=== PATIENT | male | born 1980 | race Caucasian/White ===

== ENCOUNTER → 2024-02-20 10:00 | Outpatient (REF) | payer BC, SELFPAY | LOC: CLAB 10:00 | PROVIDERS: ATTENDING PHYSICIAN Surgery | DX: Z30.2 Encounter for sterilization (principal) | CPT/HCPCS: 88302 ==

== ENCOUNTER 2024-04-06 18:53 | Emergency (ER) | payer BC, SELFPAY ==
[2024-04-06 18:58] VITALS: BP 130/68
[2024-04-06 19:10] LABS: % Basophils 0.3 % (0-2); % Eosinophils 1.3 % (0-6); % Immature Granulocytes 0.2 % (0-0.5); % Lymphocytes 36.6 % (20.5-51.1); % Monocytes 4.8 % (1.7-9.3); % Neutrophils 56.8 % (42.2-75.2); Absolute Eosinophils 0.1 10^3/uL (0-0.7); Absolute Lymphocytes 3.6 10^3/uL (1.2-3.4); Absolute Monocytes 0.5 10^3/uL (0.1-0.6); Absolute Neutrophils 5.6 10^3/uL (1.4-6.5); Hematocrit 41.7 % (39.0-52.0); Hemoglobin 14.7 g/dL (13.0-18.0); Mean Corp Hgb Conc. 35.3 g/dL (33.0-37.0); Mean Corpuscular Hgb 31.8 pg (27.0-31.0); Mean Corpuscular Volume 90.3 fL (80.0-94.0); Mean Platelet Volume 9.2 fL (7.4-10.4); Nucleated Red Blood Cells % 0 % (-); Platelet Count 241 10^3/uL (130-400); Red Blood Cell Count 4.62 10^6/uL (4.70-6.10); Red Cell Dist. Width 12.6 % (11.5-14.5); White Blood Cell Count 9.8 10^3/uL (4.8-10.8)
[2024-04-06 19:23] LABS: ALT (SGPT) 24 U/L (0-50); AST (SGOT) 29 U/L (17-59); Albumin 4.6 g/dl (3.5-5.0); Alkaline Phosphatase 57 U/L (38-126); Blood Urea Nitrogen 20 mg/dl (9-20); Calcium 9.9 mg/dl (8.4-10.2); Carbon Dioxide 24 mmol/L (22-30); Chloride 103 mmol/L (98-107); Glucose 92 mg/dl (70-99); Potassium 4.1 mmol/L (3.5-5.1); Sodium 136 mmol/L (135-145); Total Bilirubin 0.6 mg/dl (0.2-1.3); eGFR > 60.00
[2024-04-06 19:35] LABS: Troponin I < 0.012 ng/ml
--- NOTE | 2024-04-06 21:28 | ED.GENMED ---
History of Present Illness
General
Chief Complaint: Chest Pain
Time Seen by Provider: 04/06/24 21:27
Travel History
Have you had any contact with someone who has COVID-19?: No
Do you have any symptoms of coronavirus? Fever > 100 degrees, chills, cough, shortness of breath, sore throat, loss of taste or smell, muscle aches, or headache?: No
History of Present Illness
History of Present Illness:
HPI: Patient presents due to chest discomfort. This started 4 days ago but worsened over the last several hours. His symptoms worsen with certain head movements such as turning his head to the left. It also worsens when I palpate the lateral
aspect of the left pectoral region. He does not report any significant shortness of breath. His was very concerned. He does have a cardiac history in his family.
EXAM:
GENERAL: Well appearing in no distress
HEENT: Moist oral mucosa
CARDIOVASCULAR: No murmurs, normal heart rate, regular rhythm, moderate to severe chest wall tenderness with palpation of the left pectoral musculature
PULMONARY: No respiratory distress, breath sounds are clear and equal
ABDOMEN: Soft with no peritoneal signs, no tenderness
NEUROLOGIC: Excellent strength all extremities, no coordination deficits
PSYCHIATRIC: Appropriate mental status, normal insight and judgement
EXTREMITIES: Nontender, no edema, moves all extremities equally
SKIN: No rash, no lesions
TIME OF INITIAL ENCOUNTER: 9:30 PM
NUMBER AND COMPLEXITY OF PROBLEMS ADDRESSED AT THE ENCOUNTER
� Chronic conditions affecting care: Denies any past medical history however it has a history of prior substance abuse
� Acute Exacerbation and/or Progression of Chronic Illness: This is an acute problem
� Differential Diagnosis includes: Musculoskeletal etiology, noncardiac chest pain, ACS very unlikely, PE extremely unlikely as he has no shortness of breath and vital signs not consistent with PE
AMOUNT AND/OR COMPLEXITY OF DATA TO BE REVIEWED AND ANALYZED
� I performed an independent evaluation of and my interpretation is:
EKG: Sinus 48, normal axis, no acute ST abnormality, no old to compare
CT:
X-rays: Chest x-ray shows no acute abnormality
Laboratory Studies: CBC, chemistries, troponin negative x 2
Other:
� Review of other/old records: I reviewed records�patient had an abdominal ultrasound which was unremarkable in 2020
� Clinical information was obtained by an independent historian: Spoke to at bedside
� Prescriptions/Medications Considered but not given:
� Further testing considered but not performed:
RISK OF COMPLICATIONS AND/OR MORBIDITY OR MORTALITY OF PATIENT MANAGEMENT
� Social determinants of health affecting care: Lives at home with
� Discussion with other providers:
� Escalation of care including admission/observation vs risk of discharge considered: Patient has had 4 days of symptoms but symptoms worsened more significantly prior to arrival�will repeat troponin and try Toradol. On
reassessment, patient reports some improvement after Toradol was given. Strongly suspect chest wall/left pectoral muscular etiology as a cause of his symptoms. However he still has some ongoing chest tightness that may or may not be related to the
muscle�therefore I recommend that he follows up with cardiology�[facility] cardiology hotline discharge paperwork was used.
Phy Exam
Physical Exam
Physical Exam:
See HPI
Scores
Heart Score for Chest Pain Patients
STEMI patient?: Not applicable
Course
Orders/Labs/Results
Orders:
Orders
04/06/24 18:54
Electrocardiogram (*1) Urgent
Reason for Study: Chest Pain
EKG- Treatment ONCE
04/06/24 19:01
CXR2 [CR Chest - 2 Views ] Urgent
Comment:
Reason For Exam: chest discomfort since
04/06/24 19:04
CMP [Comprehensive Metabolic Panel] Urgent
Complete Blood Count/With Diff Urgent
Troponin I Urgent
04/06/24 21:35
Ketorolac [Toradol] 15 mg IV NOW STA
04/06/24 21:46
Troponin I Urgent
Abnormal Lab Results
04/06/24
19:04
RBC 4.62 L 10^6/uL
(4.70-6.10)
MCH 31.8 H pg
(27.0-31.0)
Absolute Lymphs (auto) 3.6 H 10^3/uL
(1.2-3.4)
04/06/24 19:04
04/06/24 19:04
Vital Signs
Initial and Last Documented VS:
Initial Vital Signs
Temp Pulse Resp BP Pulse Ox
98.3 F 56 16 130/68 98
04/06/24 18:58 04/06/24 18:58 04/06/24 18:58 04/06/24 18:58 04/06/24 18:58
Last Documented Vital Signs
Temp Pulse Resp BP Pulse Ox
98.3 F 46 16 141/61 98
04/06/24 18:58 04/06/24 22:47 04/06/24 18:58 04/06/24 22:47 04/06/24 18:58
*Critical Care Note
Total Time (30-74mins, 75-104mins- exclusive of procedures): Not Applicable
ED Attending Note
-
Portions of this chart may have been created with voice recognition software.� Occasional wrong word or��sound alike� substitutions may have occurred due to the inherent limitations of voice recognition software.
Discharge Plan
Departure
Patient Disposition: Home (Routine Discharge)
Date of Disposition: 04/06/24
Time of Disposition: 22:51
Patient with high blood pressure during this ER visit?: Yes
Discharge Problem:
Chest wall pain
Instructions: Chest Pain CBC Follow Up
Referrals:
Samir Morales MD [Family Provider] -
Activity Restrictions/Additional Instructions:
Please follow-up your disc inspector�I looked at old records, you have been seen by Dr. Casillas and Dr. Wheeler read an echo in the past�there with [facility] [place] cardiology. I recommend 3-4 [id number] ibuprofen (Motrin) every 8 hours with food for
a few days. Return here if worse. 2 cardiac blood test showed no sign of heart attack. EKG is unremarkable.
Interventions
Interventions:
*Risk Screen - Suicide Last Done: 04/06/24 21:54
*General Assessment Last Done: 04/06/24 21:54
*Neglect/Abuse Screening Last Done: 04/06/24 21:54
*ED COVID-19 Vaccine History Last Done: 04/06/24 18:55
ED- Cardiac Assessment Last Done: 04/06/24 21:54
Discharge Date and Time
Print Language: ESTONIAN
[2024-04-06] MEDS: TORADOL 15 MG IV (21:44)
[2024-04-06 22:15] LABS: Troponin I < 0.012 ng/ml
[2024-04-06 22:47] VITALS: BP 141/61
[2024-04-06 23:06] VITALS: BP 141/61
== END 2024-04-06 23:07 | disposition home or self-care (01) ==
LOC: EMR 18:53
PROVIDERS: Student in an Organized Health Care Education/Training Program; EMERGENCY PHYSICIAN Emergency Medicine; FAMILY PHYSICIAN Family Medicine
DX: R07.89 Other chest pain (principal); R03.0 Elevated blood-pressure reading, without diagnosis of hypertension
CPT/HCPCS: 99285; 96374; 71046; 80053; 84484; 85025; 93005

== ENCOUNTER 2024-07-23 21:14 | Emergency (ER) | payer OTHER, BC, SELFPAY ==
[2024-07-23 21:28] VITALS: BP 143/79
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
[2024-07-23] MEDS: MOTRIN 600 MG PO (22:50)
[2024-07-23 23:45] VITALS: BP 135/80
== END 2024-07-23 23:46 | disposition home or self-care (01) ==
LOC: EMR 21:14
PROVIDERS: EMERGENCY PHYSICIAN Student in an Organized Health Care Education/Training Program; FAMILY PHYSICIAN Family Medicine
DX: M54.9 Dorsalgia, unspecified (principal); M79.10 Myalgia, unspecified site; V49.50XA Passenger injured in collision with unspecified motor vehicles in traffic accident, initial encounter; Y92.410 Unspecified street and highway as the place of occurrence of the external cause; F41.9 Anxiety disorder, unspecified; R03.0 Elevated blood-pressure reading, without diagnosis of hypertension
CPT/HCPCS: 99283; 71046

== ENCOUNTER → 2024-08-28 14:55 | Outpatient (REF) | payer BC, SELFPAY | LOC: RCS 14:55 | PROVIDERS: ATTENDING PHYSICIAN Nurse Practitioner; FAMILY PHYSICIAN Family Medicine | DX: R07.9 Chest pain, unspecified (principal); R00.1 Bradycardia, unspecified | CPT/HCPCS: 93306 ==